=== PATIENT | female | born 1955 | race Caucasian/White ===

== ENCOUNTER → 2019-10-12 | Outpatient (CLI) | payer BC ==
[~2019-10-12] MED LIST: ASPIRIN EC81 M1; BYSTOLIC10 MG; CELEXA 20 MG TA20 M1 PO; HYDROCHLOROTHIA25 M1 PO; SIMVASTATIN20 MG
== END ==
LOC: SJCVCIMAG 12:00
PROVIDERS: ATTEND Nuclear Medicine Nuclear Cardiology
DX: I73.9 Peripheral vascular disease, unspecified (principal); I73.00 Raynaud's syndrome without gangrene; I10 Essential (primary) hypertension; F41.9 Anxiety disorder, unspecified; Z79.899 Other long term (current) drug therapy